=== PATIENT | female | born 1955 | race Caucasian/White ===

== ENCOUNTER → 2021-09-15 | Outpatient (CLI) | payer BC, MEDICARE ==
--- NOTE | 2021-09-15 09:42 | RAD ---
MR#: [id number] Date of Study: 09/15/2021 Ordering Physician: RAFAELA MARTIN, Referring Physician: RAFAELA MARTIN, Tech: Dyana Avila RVT, [place] APPROVED REPORT Patient Location : OUT-PATIENT Findings Limited grayscale images of the bilateral saphenofemoral junctions are grossly unremarkable. The right great saphenous vein measures 6.6 mm and the left great saphenous vein measures 5.1 mm. Th e bilateral greater saphenous veins did not demonstrate any evidence of reflux. The right lesser saphenous vein measures 3 mm and the left lesser saphenous vein measures 2.5 mm. No evidence of reflux in the bilateral lesser saphenous veins. Critical Notification Critical Value: No <Conclusion> 1. Negative for reflux in the bilateral greater and lesser saphenous vein Signed by : Ld Mejia, Electronically Approved : 09/15/2021 09:42:25
--- NOTE | 2021-09-15 15:26 | CARD ---
MR#: [id number] Date of Study: 09/15/2021 Ordering Physician: RAFAELA MARTIN, Referring Physician: RAFAELA MARTIN, Tech: Kaylen Paige [facility] APPROVED REPORT EXAM: Two-dimensional and M-mode echocardiogram with Doppler and color Doppler. Other Information Quality : AverageHR: 80bpm INDICATION Chest Pain 2D DIMENSIONS RVDd2.8 (2.9-3.5cm)Left Atrium(2D)3.6 (1.6-4.0cm) IVSd1.0 (0.7-1.1cm)Aortic Root(2D)2.8 (2.0-3.7cm) LVDd4.8 (3.9-5.9cm)LVOT Diameter2.0 (1.8-2.4cm) PWd0.8 (0.7-1.1cm)LVDs2.9 (2.5-4.0cm) FS (%) 39.4 %SV75.4 ml LVEF(%)69.9 (>50%) Aortic Valve AoV Peak Diego.160.8cm/sAoV VTI29.1cm AO Peak GR.10.3mmHgLVOT Peak Diego.147.6cm/s LVOT VTI 32.85cmAO Mean GR.5mmHg DEWAYNE (VMAX)2.39ht8XCD (VTI)3.66cm2 Mitral Valve MV E Qsxwrbiu91.7cm/sMV DECEL ZBTY796vl MV A Jkmpuhvu52.1cm/sMV E Mean Gr.2mmHg MV WHS65beO/A Ratio1.0 MVA (PHT)3.49cm2 TDI E/Lateral E'8.6E/Medial E'8.2 Pulmonary Valve PV Peak Ovmxyucm980.1cm/sPV Peak Grad.4mmHg Tricuspid Valve TR P. [place]ai835gt/sRAP ZNFWRFYN9koOo TR Peak Gr.68noPgSQKL17kuTd Pulmonary Vein S1 Wfbxdlin15.6cm/sD2 Vxjrbbbi98.2cm/s PVa ambcorpv240tkou LEFT VENTRICLE The left ventricle is normal size. There is borderline concentric left ventricular hypertrophy. The l eft ventricular systolic function is normal and the ejection fraction is within normal range. The Eje ction Fraction is 55-60%. There is normal LV segmental wall motion. Transmitral Doppler flow pattern is Grade II-pseudonormal filling dynamics. RIGHT VENTRICLE The right ventricle is normal size. There is normal right ventricular wall thickness. The right ventr icular systolic function is normal. ATRIA The left atrium size is normal. The right atrium size is normal. The interatrial septum is intact wit h no evidence for an atrial septal defect or patent foramen ovale as noted on 2-D or Doppler imaging. AORTIC VALVE The aortic valve is normal in structure and function. Doppler and Color Flow revealed no significant aortic regurgitation. There is no significant aortic valvular stenosis. Calculated aortic valve area is 3.41 cm2 with maximum pressure gradient of 11 mmHg and mean pressure gradient of 6 mmHg. MITRAL VALVE The mitral valve is normal in structure and function. There is no evidence of mitral valve prolapse. There is no mitral valve stenosis. Doppler and Color-flow revealed trace mitral regurgitation. TRICUSPID VALVE The tricuspid valve is normal in structure and function. Doppler and Color Flow revealed trace tricus pid regurgitation with an estimated PAP of 25 mmHg. There is no tricuspid valve stenosis. PULMONIC VALVE The pulmonic valve is not well visualized. Doppler and Color Flow revealed trace pulmonic valvular re gurgitation. There is no pulmonic valvular stenosis. GREAT VESSELS The aortic root is normal in size. The ascending aorta is normal in size. The IVC is normal in size a nd collapses >50% with inspiration. PERICARDIAL EFFUSION There is no evidence of significant pericardial effusion. Critical Notification Critical Value: No <Conclusion> The left ventricular systolic function is normal and the ejection fraction is within normal range. Th e Ejection Fraction is 55-60%. There is normal LV segmental wall motion. Signed by : Ld Mejia, Electronically Approved : 09/15/2021 15:25:58
== END ==
LOC: US 09:16
PROVIDERS: ATTEND Internal Medicine Cardiovascular Disease
DX: I87.2 Venous insufficiency (chronic) (peripheral) (principal); R07.9 Chest pain, unspecified
CPT/HCPCS: 93306; 93970

== ENCOUNTER → 2021-10-17 | Outpatient (CLI) | payer BC, MEDICARE ==
[~2021-10-17] MED LIST: REGADENOSON 0.4 MG/5 ML DISP.SYRIN. IV ONE
--- NOTE | 2021-10-17 17:15 | RAD ---
MR#: [id number] Date of Study: 10/17/2021 Ordering Physician: RAFAELA MARTIN, Referring Physician: JAVED JASSO Tech: KATALINA Head ARRT (R) (N) APPROVED REPORT Test Type: Pharmacological Stress Nurse/Tech: Bigg King RN Test Indications: chest pain, palpitations Cardiac History: x-smoker Medications: See Electronic Medical Record Medical History: See Electronic Medical Record Resting ECG: SR Resting Heart Rate: 66 bpm Resting Blood Pressure: 135/76mmHg Pretest Chest Pain: None Nurse/Tech Notes Lungs CTA, S1S2 Consent: The procedure was explained to the patient in lay terms. Informed consent was witnessed. Kenyon eout was entered into [employer]. History and Stress Test performed by RT Shante (Sarah) (N) Pharm. Details Pharmacologic stress testing was performed using 0.4mg per 5ml of regadenoson given intravenously ove r 7-10 seconds. Stress Symptoms No chest pain or symptoms. POST EXERCISE Reason for Termination: Infusion complete Max HR: 112 bpm Max Blood Pressure: 159/75mmHg Blood Pressure response to exercise: Normal blood pressure response during stress. Heart Rate response to exercise: normal response Chest Pain: No. Arrhythmia: No. ST Change: No. INTERPRETATION Stress EKG Conclusion: The resting EKG shows a sinus rhythm. The stress EKG showed no significant changes from baseline. No EKG evidence of stress-induced ischemia. Imaging Protocol IMAGE PROTOCOL: Rest Tc-99m/stress Tc-99m 1 day Rest: Stress: Viability: Radiopharm.Tc99m BdbxumtdxHz43e Sestamibi Payt07qRp 32mCi Img Date 10/17/2021 10/17/2021 Inj-Img Sdfg33fza. 60min. Rest Admin Site:IV - Right AntecubitalAdministrator:KATALINA Head, NURA (R)(N) Stress Admin Site: IV - Right AntecubitalAdministrator: RT Aundrea Frey)(N) STRESS DATA End Diast. Vol.49.0mlLVEDV index BSA24.0ml End Syst. Vol.37.0mlLVESV index BSA18.0ml Myocardial Mass95.0gEject. Kcjgunxo58.0% Stress Scores Regional WT3.00Summed WT51.00 Regional WM2.00Summed WM40.00 LV Perfusion The stress scans showed no significant defects. The rest scans showed no significant defects. Nuclear imaging shows no fixed or reversible ischemia. Wall Motion LV analysis is technically limited. Ejection fraction was calculated at 18% on a technically difficu lt study. LV Perf. Quant 17 Seg. SSS0.00 17 Seg. SRS0.00 17 Seg. SDS0.00 Stress Defect Extent (% LAD)0.00Rest Defect Extent (% LAD)0.00Rev. Defect Extent (% LAD)0.00 Stress Defect Extent (% LCX) 0.00Rest Defect Extent (% LCX)0.00Rev. Defect Extent (% LCX)0.00 Stress Defect Extent (% RCA)0.00Rest Defect Extent (% RCA)0.00Rev. Defect Extent (% RCA)0.00 Stress Defect Extent (% BONNIE)0.00Rest Defect Extent (% BONNIE)0.00Rev. Defect Extent (% BONNIE)0.00 Conclusion 1. No EKG evidence of stress-induced ischemia. 2. Nuclear imaging shows no reversible ischemia or infarct. 3. Decreased calculated ejection fraction at 18% on a technically difficult study. 4. Would consider this a moderate risk test with no evidence of ischemia or infarct but a decreased c alculation for the ejection fraction. Signed by : Josué Lama MD Electronically Approved : 10/17/2021 17:14:46
== END ==
LOC: NM 12:05 → EDUNIT# 10-25 08:30
PROVIDERS: ATTEND Internal Medicine Cardiovascular Disease
DX: R07.9 Chest pain, unspecified (principal)
CPT/HCPCS: 78452; 93017; A9500; J2785